=== PATIENT | female | born 1975 | race Caucasian/White ===

== ENCOUNTER 2017-08-14 11:47 | Emergency (ER) | payer MEDICAID ==
--- NOTE | 2017-08-14 12:56 | EDM.PDOC ---
ED HPI GENERAL MEDICAL PROBLEM - General Chief Complaint: Lower Extremity Injury/Pain Stated Complaint: Left calf pain Time Seen by Provider: 08/14/17 12:22 Source of Information: Reports: Patient History Limitations: Reports: No Limitations - History of Present Illness INITIAL COMMENTS - FREE TEXT/NARRATIVE: Patient comes in due to continued lower left leg discomfort two days after injuring the extremity while at work. Was pushing a cart at [employer] and suddenly turned. While turning she felt a pop around the left ankle and sudden burning pain going up calf. This has not improved over the last two days. She denies other injury. Has difficult time ambulating due to the discomfort. Mild numbness around superior/posterior back of foot near base of Achilles tendon. No other complaints. 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) - Related Data Allergies Allergy/AdvReac Type Severity Reaction Status Date / Time hydromorphone [From Dilaudid] Allergy Vomiting Verified 08/14/17 11:48 Home Meds: Home Meds Ibuprofen [Motrin] 800 mg PO QID PRN 08/14/17 [History] Starts With 'R" And Is For Choresterol 08/14/17 [History] Venlafaxine [Effexor] 10 mg PO DAILY 08/14/17 [History] Past Medical History Cardiovascular History: Reports: High Cholesterol Neurological History: Reports: Other (See Below) (mood disorder) Social & Family History - Tobacco Use Smoking Status *Q: Current Every Day Smoker Years of Tobacco use: 12 Packs/Tins Daily: 0.7 Second Hand Smoke Exposure: Yes - Caffeine Use Caffeine Use: Reports: Coffee, Soda Other Caffeine Use: 2 cups a day, one pop in evening - Recreational Drug Use Recreational Drug Use: No Review of Systems - Review of Systems Review Of Systems: ROS reveals no pertinent complaints other than HPI. ED EXAM, GENERAL - Physical Exam Exam: See Below Exam Limited By: No Limitations General Appearance: Alert, WD/WN, No Apparent Distress Eye Exam: Bilateral Eye: EOMI, PERRL Head: Atraumatic, Normocephalic Respiratory/Chest: No Respiratory Distress Peripheral Pulses: 2+: Dorsalis Pedis (L) Extremities: Normal Capillary Refill, Other (tender with palpation over calf area. Negative Pacheco test. No edema noted when comparing left to right. Foot NVI. ) Neurological: Alert, Oriented Psychiatric: Normal Affect, Normal Mood Skin Exam: Warm, Dry, Intact, Normal Color Course - Vital Signs Last Recorded V/S: Last Vital Signs Temp 36.9 C 08/14/17 12:05 Pulse 90 08/14/17 12:05 Resp 16 08/14/17 12:05 BP 114/72 08/14/17 12:05 Pulse Ox 99 08/14/17 12:05 - Orders/Labs/Meds Orders: Active Orders 24 hr Category Date Time Status Ankle Min 3V Lt [CR] Stat Exams 08/14/17 11:57 Taken - Radiology Interpretation Free Text/Narrative:: Xray of ankle unremarkable for fracture/acute change - Re-Assessments/Exams Free Text/Narrative Re-Assessment/Exam: 08/14/17 13:10 Suspect partial achilles tendon tear based on history and exam. Cam boot given to patient. She declined crutches. Work slip given. She is to follow up tomorrow at Ortho walk in clinic in [place], either [place] or [facility], be evaluated, and formulate a care plan. One bottle of Toradol 10mg tabs from take home supply in ER given to patient to help with discomfort. Departure - Departure Time of Disposition: 12:41 Disposition: Home, Self-Care 01 Condition: Good Clinical Impression: Partial Achilles tendon tear Qualifiers: Encounter type: initial encounter Laterality: left Qualified Code(s): S86.012A - Strain of left Achilles tendon, initial encounter - Discharge Information Instructions: Partial (Incomplete) Achilles Tendon Rupture Referrals: Linda Tee PA-C [Primary Care Provider] - Forms: ED Department Discharge Additional Instructions: Avoid weight bearing until you see Ortho tomorrow. Follow up with walk-in Ortho either at [place] or [facility] Wear boot for support Take Tramadol one tablet every 6 hours as needed for pain. - My Orders Last 24 Hours: My Active Orders 08/14/17 11:57 Ankle Min 3V Lt [CR] Stat - Assessment/Plan Last 24 Hours: My Active Orders 08/14/17 11:57 Ankle Min 3V Lt [CR] Stat
== END 2017-08-14 13:15 | disposition home or self-care (01) ==
LOC: LL.ED 11:47
DX: S86.012A Strain of left Achilles tendon, initial encounter (principal); E78.00 Pure hypercholesterolemia, unspecified; F17.210 Nicotine dependence, cigarettes, uncomplicated; X50.0XXA Overexertion from strenuous movement or load, initial encounter; Y99.0 Civilian activity done for income or pay; Z88.5 Allergy status to narcotic agent
CPT/HCPCS: 73610-LT; 99283

== ENCOUNTER 2017-09-25 21:45 | Observation (INO) | payer MEDICAID ==
[2017-09-25] MEDS ORDERED: fentaNYL 100 MCG/2 ML SDV IVPUSH ONE ×2 (22:40→23:53)
[2017-09-25] MEDS ORDERED: diphenhydrAMINE 50 MG/ML SDV IVPUSH ONE (22:40)
[2017-09-25 22:41] LABS: CHLORIDE,CL 103 mmol/L (98-107); SODIUM,NA 140 mmol/L (136-145)
[2017-09-25] MEDS ORDERED: Promethazine 25 MG/ML SDV IM ONE (22:41)
[2017-09-25] MEDS ORDERED: Sodium Chloride 0.9% 1,000 ML IV ONE (22:41)
--- NOTE | 2017-09-25 22:47 | EDM.PDOC ---
ED HPI GENERAL MEDICAL PROBLEM - General Chief Complaint: Abdominal Pain Stated Complaint: right lower abd pain Time Seen by Provider: 09/25/17 22:15 Source of Information: Reports: Patient History Limitations: Reports: No Limitations - History of Present Illness INITIAL COMMENTS - FREE TEXT/NARRATIVE: Patient comes complaining of 2 day history of increasing RLQ pain. Dull/achy/ burning. Radiates through to her back. Mild nausea but still able to eat/drink today. No bowel changes. No urinary changes. Eat/drink/position change/urinating/BM have no impact on pain. Riding over bumps in the car made pain worse. Has had GB, uterus, ovaries removed. Still has appendix. Has had kidney stones in past but this does not feel like that to her. Smoker. Family history non-contributory. 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, Other Medication(s) Right Upper Abdomen Pain Score (Numeric/FACES): 5 - Related Data Allergies Allergy/AdvReac Type Severity Reaction Status Date / Time adhesive Allergy Hives Verified 09/25/17 21:47 hydromorphone [From Dilaudid] Allergy Vomiting Verified 09/25/17 21:46 latex Allergy Hives Verified 09/25/17 21:47 Home Meds: Home Meds Acetaminophen [Extra Strength Non-Aspirin] 2 tab PO Q6H 09/25/17 [History] Hydrocodone/Acetaminophen [Hydrocodon-Acetaminophen 5-325] 1 tab PO ASDIRECTED 09/25/17 [History] Ibuprofen 800 mg PO Q6H 09/25/17 [History] Rosuvastatin [Crestor] 10 mg PO BEDTIME 09/25/17 [History] Venlafaxine [Effexor] 25 mg PO BEDTIME 09/25/17 [History] Past Medical History HEENT History: Reports: Impaired Vision Cardiovascular History: Reports: Arrhythmia, High Cholesterol, Hypertension Genitourinary History: Reports: Pyelonephritis, Renal Calculus 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: Polycystic Ovaries, Spontaneous Neurological History: Reports: Migraines Endocrine/Metabolic History: Reports: Hypothyroidism Hematologic History: Reports: Anemia, Iron Deficiency Oncologic (Cancer) History: Reports: Breast - Past Surgical History HEENT Surgical History: Reports: Oral Surgery Cardiovascular Surgical History: Reports: Cardiac Ablation GI Surgical History: Reports: Cholecystectomy, Hernia, Abdominal Female Surgical History: Reports: Breast Biopsy, Breast Implant, Breast Reconstruction, Lithotripsy/ESWL, Salpingo-Oophorectomy, Tubal Ligation Musculoskeletal Surgical History: Reports: Arthroscopic Knee Oncologic Surgical History: Reports: Biopsy of Breast, Lumpectomy, Mastectomy Social & Family History - Tobacco Use Smoking Status *Q: Current Every Day Smoker Years of Tobacco use: 12 Packs/Tins Daily: 1 - Caffeine Use Caffeine Use: Reports: Coffee, Soda - Alcohol Use Alcohol Use History: No Alcohol Use in Last Twelve Months: No Alcohol Use Comment: Alcohol gives patient hives - Recreational Drug Use Recreational Drug Use: No ED ROS GENERAL - Review of Systems Review Of Systems: See Below Constitutional: Reports: No Symptoms. Denies: Fever, Chills, Diaphoresis, Decreased Appetite, Weight Loss, Weight Gain HEENT: Reports: No Symptoms, Glasses Respiratory: Reports: No Symptoms. Denies: Shortness of Breath, Cough Cardiovascular: Reports: No Symptoms. Denies: Chest Pain GI/Abdominal: Reports: Abdominal Pain, Nausea. Denies: Black Stool, Bloody Stool, Constipation, Diarrhea, Decreased Appetite, Difficulty Swallowing, Distension, Hematemesis, Hematochezia, Vomiting : Reports: No Symptoms Musculoskeletal: Reports: No Symptoms Skin: Reports: No Symptoms Neurological: Reports: No Symptoms Psychiatric: Reports: No Symptoms Hematologic/Lymphatic: Reports: No Symptoms ED EXAM, GI/ABD - Physical Exam Exam: See Below Exam Limited By: No Limitations General Appearance: Alert, WD/WN, Mild Distress, Other (wants to lay on side, position of comfort) Eyes: Bilateral: Normal Appearance, EOMI Ears: Normal External Exam Nose: No: Nasal Deformity, Nasal Swelling, Nasal Drainage Throat/Mouth: Normal Lips, Normal Voice, No Airway Compromise Head: Atraumatic, Normocephalic Neck: Normal Inspection, Supple, Non-Tender, Full Range of Motion Respiratory/Chest: No Respiratory Distress, Lungs Clear, Normal Breath Sounds, No Accessory Muscle Use, Chest Non-Tender Cardiovascular: Normal Peripheral Pulses, Regular Rate, Rhythm, No Edema, No Murmur GI/Abdominal Exam: No Distention, Guarding (mild), Rebound, Tender, Abnormal Bowel Sounds (decreased bowel sounds throughout), Other (Pain concentrated in RLQ). No: Rigid (Female) Exam: Deferred Rectal (Female) Exam: Deferred Back Exam: No: CVA Tenderness (L), CVA Tenderness (R) Extremities: Normal Inspection, Normal Range of Motion, Non-Tender, No Pedal Edema, Normal Capillary Refill Neurological: Alert, Oriented, Normal Cognition, No Motor/Sensory Deficits Psychiatric: Normal Affect, Normal Mood Skin Exam: Warm, Dry, Intact, Normal Color Course - Vital Signs Last Recorded V/S: Last Vital Signs Temp 36.3 C 09/25/17 21:55 Pulse 88 09/25/17 21:55 Resp 18 09/25/17 21:55 BP 125/86 09/25/17 21:55 Pulse Ox 100 09/25/17 21:55 - Orders/Labs/Meds Orders: Active Orders 24 hr Category Date Time Status Abdomen 2V AP Flat Upright [CR] Stat Exams 09/25/17 22:01 Taken Abdomen Pelvis w Cont [CT] Stat Exams 09/25/17 22:39 Ordered UA W/MICROSCOPIC [URIN] Stat Lab 09/25/17 22:01 Ordered Sodium Chloride 0.9% [Normal Saline] 1,000 ml Med 09/25/17 22:41 Ordered IV .BOLUS Sodium Chloride 0.9% [Saline Flush] Med 09/25/17 22:39 Ordered 10 ml FLUSH ASDIRECTED PRN Saline Lock Insert [OM.PC] Routine Oth 09/25/17 22:39 Ordered Medication Orders Sodium Chloride (Normal Saline) 1,000 mls @ 250 mls/hr IV .BOLUS ONE Stop: 09/26/17 02:40 Last Admin: 09/25/17 23:02 Dose: 250 mls/hr Sodium Chloride (Saline Flush) 10 ml FLUSH ASDIRECTED PRN PRN Reason: Keep Vein Open Labs: Laboratory Tests 09/25/17 09/25/17 09/25/17 Range/Units 22:01 22:10 22:15 WBC 6.4 (4.0-10.2) K/uL RBC 4.48 (3.77-5.09) M/uL Hgb 13.9 (11.7-15.5) g/dL Hct 40.7 (34.0-46.0) % MCV 90.8 (84.0-98.0) fL MCH 31.0 (28.2-33.3) pg MCHC 34.2 (31.7-36.0) g/dL RDW 13.0 (11.2-14.1) % Plt Count 214 (150-350) K/uL Neut % (Auto) 48.1 (45.0-80.0) % Lymph % (Auto) 38.9 (10.0-50.0) % [place] % (Auto) 10.7 (2.0-14.0) % Eos % (Auto) 2.0 (0.0-5.0) % Baso % (Auto) 0.3 (0.0-2.0) % Neut # (Auto) 3.06 (1.40-7.00) K/uL Lymph # (Auto) 2.48 (0.50-3.50) K/uL [place] # (Auto) 0.68 (0.00-1.00) K/uL Eos # (Auto) 0.13 (0.00-0.50) K/uL Baso # (Auto) 0.02 (0.00-0.20) K/uL Sodium 140 (136-145) mmol/L Potassium 3.9 (3.5-5.1) mmol/L Chloride 103 (98-107) mmol/L Carbon Dioxide 29.9 (21.0-32.0) mmol/L BUN 11 (7-18) mg/dL Creatinine 0.78 (0.51-1.17) mg/dL Est Cr Clr Drug Dosing 81.96 mL/min Estimated GFR (MDRD) > 60 mL/min Glucose 94 (74-106) mg/dL Calcium 9.2 (8.5-10.1) mg/dL Total Bilirubin 0.3 (0.2-1.0) mg/dL AST 21 (15-37) U/L ALT 22 (12-78) U/L Alkaline Phosphatase 123 H (46-116) IU/L Total Protein 7.9 (6.4-8.2) g/dL Albumin 4.1 (3.4-5.0) g/dL Specimen Type Urincc Urine Color Light yellow Urine Appearance Clear Urine pH 7.0 (5.0-9.0) Ur Specific [place] 1.010 (1.005-1.030) Urine Protein Negative (NEGATIVE) mg/dL Urine Glucose (UA) Negative (NEGATIVE) mg/dL Urine Ketones Negative (NEGATIVE) mg/dL Urine Occult Blood Negative (NEGATIVE) Urine Nitrite Negative (NEGATIVE) Urine Bilirubin Negative (NEGATIVE) Urine Urobilinogen 0.2 (0.2-1.0) E.U./dL Ur Leukocyte Esterase Negative (NEGATIVE) Urine RBC Not seen /HPF Urine WBC 0-5 /HPF Ur Epithelial Cells Rare /LPF Urine Bacteria Not seen (NONE TO FEW) /HPF Meds: Medications Generic Name Dose Route Start Last Admin Trade Name Freq PRN Reason Stop Dose Admin Sodium Chloride 1,000 mls @ 250 mls/hr 09/25/17 22:41 09/25/17 23:02 Normal Saline IV 09/26/17 02:40 250 mls/hr .BOLUS ONE Administration Sodium Chloride 10 ml 09/25/17 22:39 Saline Flush FLUSH ASDIRECTED PRN Keep Vein Open Discontinued Medications Generic Name Dose Route Start Last Admin Trade Name Freq PRN Reason Stop Dose Admin Diphenhydramine HCl 50 mg 09/25/17 22:40 09/25/17 23:04 Benadryl IVPUSH 09/25/17 22:41 50 mg ONETIME ONE Administration Fentanyl 100 mcg 09/25/17 22:40 09/25/17 23:04 Sublimaze IVPUSH 09/25/17 22:41 100 mcg ONETIME ONE Administration Fentanyl 250 mcg 09/25/17 23:41 09/26/17 00:40 Sublimaze IVPUSH 09/25/17 23:42 Not Given ONETIME ONE Fentanyl 100 mcg 09/25/17 23:53 09/25/17 23:59 Sublimaze IVPUSH 09/25/17 23:54 100 mcg ONETIME ONE Administration Iopamidol 100 ml 09/25/17 23:03 09/25/17 23:32 Isovue-300 (61%) IVPUSH 09/25/17 23:04 100 ml ONETIME ONE Administration Ondansetron HCl 4 mg 09/25/17 23:41 09/25/17 23:46 Zofran IVPUSH 09/25/17 23:42 4 mg ONETIME ONE Administration Promethazine HCl 25 mg 09/25/17 22:41 09/25/17 23:10 Phenergan IM 09/25/17 22:42 25 mg ONETIME ONE Administration - Radiology Interpretation Free Text/Narrative:: Negative for appendicitis/stone/muscle tears/fluid or other changes. CT Results Date: 09/26/17 CT Results Time: 12:17 - Re-Assessments/Exams Free Text/Narrative Re-Assessment/Exam: 09/26/17 00:44 Given Benadryl prior to pain medication. Did have some nausea/retching after the Benadryl. Uncertain if due to Benadryl but patient recalls having nausea when taking Benadryl in past. Patient's pain improved after receiving Fentanyl. IV fluids given. CBC/Chem/UA completely normal as was CT. 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 It was recommended that she stay here and be admitted to observation with serial abdominal exams and antibiotics. Several recommended therapy regimens offered/suggested for prophylactic coverage. Patient can be referred to their facility if the need arises. Patient and agreeable with plan. She will be admitted to observation and will have Rocephin as well as Flagyl initiated. Departure - Departure Time of Disposition: 00:58 Disposition: Refer to Observation Condition: Good Clinical Impression: Abdominal pain Qualifiers: Abdominal location: right lower quadrant Qualified Code(s): R10.31 - Right lower quadrant pain - Discharge Information Referrals: Linda Tee PA-C [Primary Care Provider] - Forms: ED Department Discharge - Problem List & Annotations (1) Abdominal pain SNOMED Code(s): 44511310 Code(s): R10.9 - UNSPECIFIED ABDOMINAL PAIN Status: Acute Priority: High Onset Date: 09/24/17 Annotation/Comment:: Uncertain cause at this time. Guarding and rebound present. Labs and CT unremarkable. Will admit to observation. Patient will be NPO except for water/ice chips. Serial abdominal exams. Repeat labs. Observe for change. Will prophylactically cover with antibiotics as suggested by Joshua. Rocephin and Flagyl ordered. May need to repeat CT to look for change if pain does not improve within the next 48 hours. Qualifiers: Abdominal location: right lower quadrant - Problem List Review Problem List Initiated/Reviewed/Updated: Yes - My Orders Last 24 Hours: My Active Orders 09/25/17 22:01 Abdomen 2V AP Flat Upright [CR] Stat UA W/MICROSCOPIC [URIN] Stat 09/25/17 22:39 Abdomen Pelvis w Cont [CT] Stat Sodium Chloride 0.9% [Saline Flush] 10 ml FLUSH ASDIRECTED PRN Saline Lock Insert [OM.PC] Routine 09/25/17 22:41 Sodium Chloride 0.9% [Normal Saline] 1,000 ml IV .BOLUS - Assessment/Plan Admission H&P: Please use this note as an admission H&P Last 24 Hours: My Active Orders 09/25/17 22:01 Abdomen 2V AP Flat Upright [CR] Stat UA W/MICROSCOPIC [URIN] Stat 09/25/17 22:39 Abdomen Pelvis w Cont [CT] Stat Sodium Chloride 0.9% [Saline Flush] 10 ml FLUSH ASDIRECTED PRN Saline Lock Insert [OM.PC] Routine 09/25/17 22:41 Sodium Chloride 0.9% [Normal Saline] 1,000 ml IV .BOLUS Assessment:: as above Plan: as above
[2017-09-25] MEDS ORDERED: Iopamidol 612 MG/ML 100 ML Bottle IVPUSH ONE (23:03)
[2017-09-25] MEDS ORDERED: fentaNYL 250 MCG/5 ML SDV IVPUSH ONE (23:41)
[2017-09-25] MEDS ORDERED: Ondansetron 4 MG/2 ML SDV IVPUSH ONE (23:41)
[2017-09-26] MEDS ORDERED: Promethazine 25 MG Tab PO PRN (01:22)
[2017-09-26] MEDS: Ketorolac 30 MG/ML SDV IVPUSH PRN ×3 (02:04→20:01)
[2017-09-26] MEDS: cefTRIAXone 1 GM in Sodium Chloride 0.9% 100 ML IV SCH (02:04)
[2017-09-26] MEDS: Nicotine 21 MG/24 Hr Patch TRDERM SCH ×2 (02:05→08:12)
[2017-09-26] MEDS: metroNIDAZOLE/Normal Saline 500 MG in Premix Bag 1 BAG IV SCH ×3 (02:31→16:57)
[2017-09-26] MEDS: Sodium Chloride 0.9% 1,000 ML IV SCH ×2 (07:21→16:57)
[2017-09-26] MEDS: fentaNYL 100 MCG/2 ML SDV IVPUSH PRN ×2 (07:22→14:19)
[2017-09-26 11:21] LABS: CHLORIDE,CL 110 mmol/L (98-107); SODIUM,NA 142 mmol/L (136-145)
[2017-09-26] MEDS: Ondansetron 4 MG/2 ML SDV IVPUSH PRN (14:20)
[2017-09-26] MEDS: Sodium Chloride 0.9% 10 ML Syringe FLUSH PRN (14:22)
--- NOTE | 2017-09-26 17:25 | PCM.PN ---
- General Info Date of Service: 09/26/17 Pain Score: 2 - Review of Systems General: Reports: Other (Abdominal pain) HEENT: Reports: No Symptoms Pulmonary: Reports: No Symptoms Cardiovascular: Reports: No Symptoms Gastrointestinal: Reports: Abdominal Pain Genitourinary: Reports: No Symptoms Musculoskeletal: Reports: No Symptoms Skin: Reports: No Symptoms Neurological: Reports: No Symptoms Psychiatric: Reports: No Symptoms - Patient Data Vitals - Most Recent: Last Vital Signs Temp 97.6 F 09/26/17 16:00 Pulse 69 09/26/17 16:00 Resp 16 09/26/17 16:00 BP 110/72 09/26/17 16:00 Pulse Ox 99 09/26/17 16:00 Weight - Most Recent: 140 lb 9.6 oz I&O - Last 24 Hours: Intake & Output 09/26/17 09/26/17 09/26/17 06:59 14:59 22:59 Intake Total 1182 500 Output Total 550 150 300 Balance 632 -150 200 Lab Results Last 24 Hours: Laboratory Results - last 24 hr 09/25/17 09/25/17 09/25/17 Range/Units 22:01 22:10 22:15 WBC 6.4 (4.0-10.2) K/uL RBC 4.48 (3.77-5.09) M/uL Hgb 13.9 (11.7-15.5) g/dL Hct 40.7 (34.0-46.0) % MCV 90.8 (84.0-98.0) fL MCH 31.0 (28.2-33.3) pg MCHC 34.2 (31.7-36.0) g/dL RDW 13.0 (11.2-14.1) % Plt Count 214 (150-350) K/uL Neut % (Auto) 48.1 (45.0-80.0) % Lymph % (Auto) 38.9 (10.0-50.0) % Dane % (Auto) 10.7 (2.0-14.0) % Eos % (Auto) 2.0 (0.0-5.0) % Baso % (Auto) 0.3 (0.0-2.0) % Neut # (Auto) 3.06 (1.40-7.00) K/uL Lymph # (Auto) 2.48 (0.50-3.50) K/uL Dane # (Auto) 0.68 (0.00-1.00) K/uL Eos # (Auto) 0.13 (0.00-0.50) K/uL Baso # (Auto) 0.02 (0.00-0.20) K/uL Sodium 140 (136-145) mmol/L Potassium 3.9 (3.5-5.1) mmol/L Chloride 103 (98-107) mmol/L Carbon Dioxide 29.9 (21.0-32.0) mmol/L BUN 11 (7-18) mg/dL Creatinine 0.78 (0.51-1.17) mg/dL Est Cr Clr Drug Dosing 81.96 mL/min Estimated GFR (MDRD) > 60 mL/min Glucose 94 (74-106) mg/dL Calcium 9.2 (8.5-10.1) mg/dL Total Bilirubin 0.3 (0.2-1.0) mg/dL AST 21 (15-37) U/L ALT 22 (12-78) U/L Alkaline Phosphatase 123 H (46-116) IU/L Total Protein 7.9 (6.4-8.2) g/dL Albumin 4.1 (3.4-5.0) g/dL Amylase (25-115) U/L Specimen Type Urincc Urine Color Light yellow Urine Appearance Clear Urine pH 7.0 (5.0-9.0) Ur Specific [place] 1.010 (1.005-1.030) Urine Protein Negative (NEGATIVE) mg/dL Urine Glucose (UA) Negative (NEGATIVE) mg/dL Urine Ketones Negative (NEGATIVE) mg/dL Urine Occult Blood Negative (NEGATIVE) Urine Nitrite Negative (NEGATIVE) Urine Bilirubin Negative (NEGATIVE) Urine Urobilinogen 0.2 (0.2-1.0) E.U./dL Ur Leukocyte Esterase Negative (NEGATIVE) Urine RBC Not seen /HPF Urine WBC 0-5 /HPF Ur Epithelial Cells Rare /LPF Urine Bacteria Not seen (NONE TO FEW) /HPF 09/26/17 09/26/17 Range/Units 09:00 09:00 WBC 4.4 (4.0-10.2) K/uL RBC 4.04 (3.77-5.09) M/uL Hgb 12.4 D (11.7-15.5) g/dL Hct 37.1 (34.0-46.0) % MCV 91.8 (84.0-98.0) fL MCH 30.7 (28.2-33.3) pg MCHC 33.4 (31.7-36.0) g/dL RDW 13.1 (11.2-14.1) % Plt Count 167 (150-350) K/uL Neut % (Auto) 45.4 (45.0-80.0) % Lymph % (Auto) 39.6 (10.0-50.0) % Dane % (Auto) 11.8 (2.0-14.0) % Eos % (Auto) 2.5 (0.0-5.0) % Baso % (Auto) 0.7 (0.0-2.0) % Neut # (Auto) 2.01 (1.40-7.00) K/uL Lymph # (Auto) 1.75 (0.50-3.50) K/uL Dane # (Auto) 0.52 (0.00-1.00) K/uL Eos # (Auto) 0.11 (0.00-0.50) K/uL Baso # (Auto) 0.03 (0.00-0.20) K/uL Sodium 142 (136-145) mmol/L Potassium 4.2 (3.5-5.1) mmol/L Chloride 110 H (98-107) mmol/L Carbon Dioxide 25.9 (21.0-32.0) mmol/L BUN 9 (7-18) mg/dL Creatinine 0.80 (0.51-1.17) mg/dL Est Cr Clr Drug Dosing 79.91 mL/min Estimated GFR (MDRD) > 60 mL/min Glucose 91 (74-106) mg/dL Calcium 8.4 L (8.5-10.1) mg/dL Total Bilirubin 0.3 (0.2-1.0) mg/dL AST 19 (15-37) U/L ALT 19 (12-78) U/L Alkaline Phosphatase 100 (46-116) IU/L Total Protein 6.2 L (6.4-8.2) g/dL Albumin 3.2 L (3.4-5.0) g/dL Amylase 38 (25-115) U/L Specimen Type Urine Color Urine Appearance Urine pH (5.0-9.0) Ur Specific [place] (1.005-1.030) Urine Protein (NEGATIVE) mg/dL Urine Glucose (UA) (NEGATIVE) mg/dL Urine Ketones (NEGATIVE) mg/dL Urine Occult Blood (NEGATIVE) Urine Nitrite (NEGATIVE) Urine Bilirubin (NEGATIVE) Urine Urobilinogen (0.2-1.0) E.U./dL Ur Leukocyte Esterase (NEGATIVE) Urine RBC /HPF Urine WBC /HPF Ur Epithelial Cells /LPF Urine Bacteria (NONE TO FEW) /HPF Med Orders - Current: Current Medications Fentanyl (Sublimaze) 100 mcg IVPUSH Q4H PRN PRN Reason: Pain (severe 7-10) Last Admin: 09/26/17 14:19 Dose: 100 mcg Sodium Chloride (Normal Saline) 1,000 mls @ 125 mls/hr IV ASDIRECTED [facility] Last Admin: 09/26/17 16:57 Dose: 125 mls/hr Ceftriaxone Sodium 1 gm/ (Sodium Chloride) 100 mls @ 200 mls/hr IV Q24H [facility] Last Admin: 09/26/17 02:04 Dose: 200 mls/hr Metronidazole 500 mg/ Premix 100 mls @ 100 mls/hr IV Q8H [facility] Last Admin: 09/26/17 16:57 Dose: 100 mls/hr Ketorolac Tromethamine (Toradol) 30 mg IVPUSH Q6H PRN PRN Reason: Pain (moderate 4-6) Stop: 10/01/17 01:22 Last Admin: 09/26/17 09:29 Dose: 30 mg Nicotine (Habitrol) 21 mg TRDERM DAILY [facility] Last Admin: 09/26/17 08:12 Dose: Not Given Ondansetron HCl (Zofran) 4 mg IVPUSH Q4H PRN PRN Reason: Nausea/Vomiting Last Admin: 09/26/17 14:20 Dose: 4 mg Promethazine HCl (Phenergan) 25 mg PO Q6H PRN PRN Reason: Nausea/Vomiting Rosuvastatin Calcium (Crestor) 10 mg PO BEDTIME [facility] Sodium Chloride (Saline Flush) 10 ml FLUSH ASDIRECTED PRN PRN Reason: Keep Vein Open Last Admin: 09/26/17 14:22 Dose: 10 ml Venlafaxine HCl (Effexor) 25 mg PO BEDTIME [facility]YAN Discontinued Medications Diphenhydramine HCl (Benadryl) 50 mg IVPUSH ONETIME ONE Stop: 09/25/17 22:41 Last Admin: 09/25/17 23:04 Dose: 50 mg Fentanyl (Sublimaze) 100 mcg IVPUSH ONETIME ONE Stop: 09/25/17 22:41 Last Admin: 09/25/17 23:04 Dose: 100 mcg Fentanyl (Sublimaze) 250 mcg IVPUSH ONETIME ONE Stop: 09/25/17 23:42 Last Admin: 09/26/17 00:40 Dose: Not Given Fentanyl (Sublimaze) 100 mcg IVPUSH ONETIME ONE Stop: 09/25/17 23:54 Last Admin: 09/25/17 23:59 Dose: 100 mcg Sodium Chloride (Normal Saline) 1,000 mls @ 250 mls/hr IV .BOLUS ONE Stop: 09/26/17 02:40 Last Admin: 09/25/17 23:02 Dose: 250 mls/hr Iopamidol (Isovue-300 (61%)) 100 ml IVPUSH ONETIME ONE Stop: 09/25/17 23:04 Last Admin: 09/25/17 23:32 Dose: 100 ml Ondansetron HCl (Zofran) 4 mg IVPUSH ONETIME ONE Stop: 09/25/17 23:42 Last Admin: 09/25/17 23:46 Dose: 4 mg Promethazine HCl (Phenergan) 25 mg IM ONETIME ONE Stop: 09/25/17 22:42 Last Admin: 09/25/17 23:10 Dose: 25 mg - Exam General: Alert, Oriented HEENT: Pupils Equal, Pupils Reactive, EOMI, Mucous Membr. Moist/[place] Neck: Supple Lungs: Clear to Auscultation, Normal Respiratory Effort Cardiovascular: Regular Rate, Regular Rhythm GI/Abdominal Exam: Normal Bowel Sounds, Soft, Rebound, Tender (Right lower quadrant) Extremities: Normal Inspection, Normal Range of Motion, Non-Tender, No Pedal Edema, Normal Capillary Refill Skin: Warm, Dry, Intact Neurological: No New Focal Deficit - Problem List & Annotations (1) Abdominal pain SNOMED Code(s): 34705059 Code(s): R10.9 - UNSPECIFIED ABDOMINAL PAIN Status: Acute Priority: High Current Visit: No Onset Date: 09/24/17 Qualifiers: Abdominal location: right lower quadrant Qualified Code(s): R10.31 - Right lower quadrant pain Annotation/Comment:: At this time patient examined revealed right lower quadrant pain still about 6 out of 10 when palpating the abdomen at rest is a 2 out of 10 and this time I'll continue the antibiotics empirically and pain control will order a repeat CT of the abdomen with both oral and IV contrast - Problem List Review Problem List Initiated/Reviewed/Updated: Yes
[2017-09-26] MEDS ORDERED: Rosuvastatin 10 MG Tab PO SCH (20:00)
[2017-09-27] MEDS: metroNIDAZOLE/Normal Saline 500 MG in Premix Bag 1 BAG IV SCH ×2 (00:35→09:00)
[2017-09-27] MEDS: cefTRIAXone 1 GM in Sodium Chloride 0.9% 100 ML IV SCH (01:37)
[2017-09-27] MEDS: Sodium Chloride 0.9% 1,000 ML IV SCH ×2 (03:40→13:39)
[2017-09-27] MEDS: Ketorolac 30 MG/ML SDV IVPUSH PRN (05:07)
[2017-09-27 07:11] LABS: CHLORIDE,CL 112 mmol/L (98-107); SODIUM,NA 143 mmol/L (136-145)
[2017-09-27] MEDS ORDERED: Iopamidol 612 MG/ML 100 ML Bottle IVPUSH ONE (07:13)
[2017-09-27] MEDS: Nicotine 21 MG/24 Hr Patch TRDERM SCH (07:39)
[2017-09-27] MEDS ORDERED: Remove Patch NICOTINE PATCH TRDERM SCH (08:15)
[2017-09-27] MEDS: Sodium Chloride 0.9% 10 ML Syringe FLUSH PRN (09:01)
[2017-09-27] MEDS: Ondansetron 4 MG/2 ML SDV IVPUSH PRN (09:11)
--- NOTE | 2017-09-27 13:59 | PCM.DCSUM1 ---
Discharge Summary - Hospital Course Free Text/Narrative:: Patient seen today for follow-up abdominal pain CT of the abdomen revealed no abnormalities at this point appendix appeared normal and there was no ovarian cyst noted or any findings to explain the pain at this time patient feels better pain seems to be under control and tolerating diet we will send her home with instructions to follow-up with primary if worsen - Discharge Data Discharge Date: 09/27/17 Discharge Disposition: Home, Self-Care 01 Condition: Good - Discharge Diagnosis/Problem(s) (1) Abdominal pain SNOMED Code(s): 19636444 ICD Code: R10.9 - UNSPECIFIED ABDOMINAL PAIN Status: Acute Priority: High Current Visit: No Onset Date: 09/24/17 Problem Details: Repeated CT of abdomen negative at this time patient is doing better we'll sent home Qualifiers: Abdominal location: right lower quadrant Qualified Code(s): R10.31 - Right lower quadrant pain - Patient Instructions Diet: Usual Diet as Tolerated - Discharge Plan Home Medications: Home Meds Ibuprofen [Motrin] 800 mg PO QID PRN 08/14/17 [History] Starts With 'R" And Is For Choresterol 08/14/17 [History] Venlafaxine [Effexor] 10 mg PO DAILY 08/14/17 [History] Acetaminophen [Extra Strength Non-Aspirin] 2 tab PO Q6H 09/25/17 [History] Hydrocodone/Acetaminophen [Hydrocodon-Acetaminophen 5-325] 1 tab PO ASDIRECTED 09/25/17 [History] Ibuprofen 800 mg PO Q6H 09/25/17 [History] Rosuvastatin [Crestor] 10 mg PO BEDTIME 09/25/17 [History] Venlafaxine [Effexor] 25 mg PO BEDTIME 09/25/17 [History] Patient Handouts: Ondansetron injection, Ceftriaxone injection, Promethazine injection, Abdominal Pain, Adult, [id number], Fentanyl injection, Metronidazole injection Forms: ED Department Discharge Referrals: Linda Tee PA-C [Primary Care Provider] - - Discharge Summary/Plan Comment Discharge Summary/Plan Comment: Instructed to quit smoking also to cut down on caffeine as they may be a corporate of her pain otherwise no limitations - General Info Functional Status: Reports: Pain Controlled, Tolerating Diet - Review of Systems General: Reports: No Symptoms HEENT: Reports: No Symptoms Pulmonary: Reports: No Symptoms Cardiovascular: Reports: No Symptoms Gastrointestinal: Reports: Abdominal Pain (Much improved from yesterday) Genitourinary: Reports: No Symptoms Musculoskeletal: Reports: No Symptoms Skin: Reports: No Symptoms Neurological: Reports: No Symptoms Psychiatric: Reports: No Symptoms - Patient Data Vitals - Most Recent: Last Vital Signs Temp 98.2 F 09/27/17 12:00 Pulse 68 09/27/17 12:00 Resp 15 09/27/17 12:00 BP 117/77 09/27/17 12:00 Pulse Ox 100 09/27/17 12:00 Weight - Most Recent: 140 lb 9.597 oz I&O - Last 24 hours: Intake & Output 09/26/17 09/27/17 09/27/17 22:59 06:59 14:59 Intake Total 2240 2145 3700 Output Total 1050 900 800 Balance 1190 1245 2900 Lab Results - Last 24 hrs: Laboratory Results - last 24 hr 09/26/17 09/27/17 09/27/17 Range/Units 17:36 06:44 06:44 WBC 5.7 (4.0-10.2) K/uL RBC 3.87 (3.77-5.09) M/uL Hgb 11.9 (11.7-15.5) g/dL Hct 35.7 (34.0-46.0) % MCV 92.2 (84.0-98.0) fL MCH 30.7 (28.2-33.3) pg MCHC 33.3 (31.7-36.0) g/dL RDW 12.6 (11.2-14.1) % Plt Count 170 (150-350) K/uL MPV 12.70 H (7.00-11.50) fL Sodium 143 (136-145) mmol/L Potassium 4.3 (3.5-5.1) mmol/L Chloride 112 H (98-107) mmol/L Carbon Dioxide 24.8 (21.0-32.0) mmol/L BUN 6 L (7-18) mg/dL Creatinine 0.72 (0.51-1.17) mg/dL Est Cr Clr Drug Dosing 88.79 mL/min Estimated GFR (MDRD) > 60 mL/min Glucose 91 (74-106) mg/dL Calcium 8.1 L (8.5-10.1) mg/dL Amylase 40 (25-115) U/L Lipase 76 84 (73-393) U/L Med Orders - Current: Current Medications Fentanyl (Sublimaze) 100 mcg IVPUSH Q4H PRN PRN Reason: Pain (severe 7-10) Last Admin: 09/26/17 14:19 Dose: 100 mcg Sodium Chloride (Normal Saline) 1,000 mls @ 125 mls/hr IV ASDIRECTED [facility] Last Admin: 09/27/17 13:39 Dose: 125 mls/hr Ceftriaxone Sodium 1 gm/ (Sodium Chloride) 100 mls @ 200 mls/hr IV Q24H [facility] Last Admin: 09/27/17 01:37 Dose: 200 mls/hr Metronidazole 500 mg/ Premix 100 mls @ 100 mls/hr IV Q8H [facility] Last Admin: 09/27/17 09:00 Dose: 100 mls/hr Ketorolac Tromethamine (Toradol) 30 mg IVPUSH Q6H PRN PRN Reason: Pain (moderate 4-6) Stop: 10/01/17 01:22 Last Admin: 09/27/17 05:07 Dose: 30 mg Miscellaneous Information (Remove Patch) 1 ea TRDERM DAILY [facility] Last Admin: 09/27/17 07:39 Dose: 1 ea Nicotine (Habitrol) 21 mg TRDERM DAILY [facility] Last Admin: 09/27/17 07:39 Dose: 21 mg Ondansetron HCl (Zofran) 4 mg IVPUSH Q4H PRN PRN Reason: Nausea/Vomiting Last Admin: 09/27/17 09:11 Dose: 4 mg Promethazine HCl (Phenergan) 25 mg PO Q6H PRN PRN Reason: Nausea/Vomiting Rosuvastatin Calcium (Crestor) 10 mg PO BEDTIME [facility] Last Admin: 09/26/17 20:01 Dose: 10 mg Sodium Chloride (Saline Flush) 10 ml FLUSH ASDIRECTED PRN PRN Reason: Keep Vein Open Last Admin: 09/27/17 09:01 Dose: 10 ml Venlafaxine HCl (Effexor) 25 mg PO BEDTIME [facility] Last Admin: 09/26/17 20:01 Dose: 25 mg Discontinued Medications Diphenhydramine HCl (Benadryl) 50 mg IVPUSH ONETIME ONE Stop: 09/25/17 22:41 Last Admin: 09/25/17 23:04 Dose: 50 mg Fentanyl (Sublimaze) 100 mcg IVPUSH ONETIME ONE Stop: 09/25/17 22:41 Last Admin: 09/25/17 23:04 Dose: 100 mcg Fentanyl (Sublimaze) 250 mcg IVPUSH ONETIME ONE Stop: 09/25/17 23:42 Last Admin: 09/26/17 00:40 Dose: Not Given Fentanyl (Sublimaze) 100 mcg IVPUSH ONETIME ONE Stop: 09/25/17 23:54 Last Admin: 09/25/17 23:59 Dose: 100 mcg Sodium Chloride (Normal Saline) 1,000 mls @ 250 mls/hr IV .BOLUS ONE Stop: 09/26/17 02:40 Last Admin: 09/25/17 23:02 Dose: 250 mls/hr Iopamidol (Isovue-300 (61%)) 100 ml IVPUSH ONETIME ONE Stop: 09/25/17 23:04 Last Admin: 09/25/17 23:32 Dose: 100 ml Iopamidol (Isovue-300 (61%)) 100 ml IVPUSH ONETIME ONE Stop: 09/27/17 07:14 Last Admin: 09/27/17 08:27 Dose: 100 ml Ondansetron HCl (Zofran) 4 mg IVPUSH ONETIME ONE Stop: 09/25/17 23:42 Last Admin: 09/25/17 23:46 Dose: 4 mg Promethazine HCl (Phenergan) 25 mg IM ONETIME ONE Stop: 09/25/17 22:42 Last Admin: 09/25/17 23:10 Dose: 25 mg - Exam General: Reports: Alert, Oriented HEENT: Reports: Pupils Equal, Pupils Reactive, EOMI, Mucous Membr. Moist/[place] Neck: Reports: Supple Lungs: Reports: Clear to Auscultation, Normal Respiratory Effort Cardiovascular: Reports: Regular Rate, Regular Rhythm GI/Abdominal Exam: Normal Bowel Sounds, Soft, No Organomegaly, No Distention, No Abnormal Bruit, No Mass, Pelvis Stable, Tender Back Exam: Reports: Normal Inspection, Full Range of Motion Extremities: Normal Inspection, Normal Range of Motion, Non-Tender, No Pedal Edema, Normal Capillary Refill Skin: Reports: Warm, Dry, Intact Neurological: Reports: No New Focal Deficit Psy/Mental Status: Reports: Alert, Normal Affect, Normal Mood
== END 2017-09-27 14:45 | disposition home or self-care (01) ==
LOC: LL.ED 21:45 → LL.MS 09-26 00:55 → MERGE 09-26 00:55
PROVIDERS: ADMIT Emergency Medicine; ATTEND Family Medicine
DX: R10.31 Right lower quadrant pain (principal); F17.210 Nicotine dependence, cigarettes, uncomplicated; E78.00 Pure hypercholesterolemia, unspecified; I10 Essential (primary) hypertension; G43.909 Migraine, unspecified, not intractable, without status migrainosus; E03.9 Hypothyroidism, unspecified; Z90.49 Acquired absence of other specified parts of digestive tract; Z79.899 Other long term (current) drug therapy; Z91.048 Other nonmedicinal substance allergy status; Z91.040 Latex allergy status; Z88.5 Allergy status to narcotic agent; Z98.51 Tubal ligation status
CPT/HCPCS: 36415; 74019; 74177; 80048; 80053; 81001; 82150; 83690; 85025; 85027; 96361; 96365; 96366; 96367; 96372; 96375; 96376; 99285; A9270; G0378; J0696; J1200; J1885; J2405; J2550; J3010; J7030; J7050; Q9967; 96374

== ENCOUNTER 2018-01-03 20:34 | Emergency (ER) | payer MEDICAID ==
--- NOTE | 2018-01-03 20:58 | EDM.PDOC ---
ED HPI GENERAL MEDICAL PROBLEM - General Chief Complaint: Lower Extremity Injury/Pain Stated Complaint: left leg injury Time Seen by Provider: 01/03/18 20:36 Source of Information: Reports: Patient History Limitations: Reports: Other - History of Present Illness INITIAL COMMENTS - FREE TEXT/NARRATIVE: Patient is a 42-year-old female who was running at this time she stepped over a ditch and felt her left ankle give it felt like the previous accident that she had when she partially tore her Achilles tendon. Onset: Today, Sudden Duration: Minutes: (About 70 minutes ago) Location: Reports: Lower Extremity, Left Quality: Reports: Burning, Sharp Severity: Moderate Improves with: Reports: Immobilization Worsens with: Reports: Movement Context: Reports: Exercise Left Lower Leg Pain Score (Numeric/FACES): 10 - Related Data Allergies Allergy/AdvReac Type Severity Reaction Status Date / Time adhesive Allergy Hives Verified 09/25/17 21:47 cinnamon Allergy Hives Verified 01/03/18 20:38 hydromorphone [From Dilaudid] Allergy Vomiting Verified 08/14/17 11:48 latex Allergy Hives Verified 09/25/17 21:47 Home Meds: Home Meds . [No Known Home Meds] 01/03/18 [History] Past Medical History HEENT History: Reports: Impaired Vision Cardiovascular History: Reports: Arrhythmia, High Cholesterol, Hypertension Genitourinary History: Reports: Pyelonephritis, Renal Calculus REBEAMER History: Reports: Polycystic Ovaries, Spontaneous Neurological History: Reports: Migraines, Other (See Below) Endocrine/Metabolic History: Reports: Hypothyroidism Hematologic History: Reports: Anemia, Iron Deficiency Oncologic (Cancer) History: Reports: Breast - Past Surgical History HEENT Surgical History: Reports: Oral Surgery Cardiovascular Surgical History: Reports: Cardiac Ablation GI Surgical History: Reports: Cholecystectomy, Hernia, Abdominal Female Surgical History: Reports: Breast Biopsy, Breast Implant, Breast Reconstruction, Lithotripsy/ESWL, Salpingo-Oophorectomy, Tubal Ligation Musculoskeletal Surgical History: Reports: Arthroscopic Knee Oncologic Surgical History: Reports: Biopsy of Breast, Lumpectomy, Mastectomy Social & Family History - Family History Family Medical History: Noncontributory - Caffeine Use Caffeine Use: Reports: Coffee, Soda Other Caffeine Use: 2 cups a day, one pop in evening Review of Systems - Review of Systems Review Of Systems: See Below Constitutional: Reports: No Symptoms Eyes: Reports: No Symptoms Ears: Reports: No Symptoms Nose: Reports: No Symptoms Mouth/Throat: Reports: No Symptoms Respiratory: Reports: No Symptoms Cardiovascular: Reports: No Symptoms GI/Abdominal: Reports: No Symptoms Genitourinary: Reports: No Symptoms Musculoskeletal: Reports: Leg Pain Skin: Reports: No Symptoms Neurological: Reports: No Symptoms Psychiatric: Reports: No Symptoms ED EXAM, GENERAL - Physical Exam Exam Limited By: No Limitations General Appearance: Alert, WD/WN, No Apparent Distress Ears: Normal External Exam, Normal Canal, Hearing Grossly Normal, Normal TMs Ear Exam: Bilateral Ear: Auricle Normal, Canal Normal, TM normal Nose: Normal Inspection, Normal Mucosa, No Blood Throat/Mouth: Normal Inspection, Normal Lips, Normal Teeth, Normal Gums, Normal Oropharynx, Normal Voice, No Airway Compromise Head: Atraumatic, Normocephalic Neck: Normal Inspection, Supple, Non-Tender, Full Range of Motion Respiratory/Chest: No Respiratory Distress, Lungs Clear, Normal Breath Sounds, No Accessory Muscle Use, Chest Non-Tender Cardiovascular: Normal Peripheral Pulses, Regular Rate, Rhythm, No Edema, No Gallop, No JVD, No Murmur, No Rub GI/Abdominal: Normal Bowel Sounds, Soft, Non-Tender, No Organomegaly, No Distention, No Abnormal Bruit, No Mass (Female) Exam: Deferred Rectal (Female) Exam: Deferred Back Exam: Normal Inspection, Full Range of Motion, NT Extremities: Leg Pain, Limited Range of Motion (Weakness on flexion of foot crease pain Achilles tendon soft) Psychiatric: Normal Affect, Normal Mood Skin Exam: Warm, Dry, Intact, Normal Color, No Rash Departure - Departure Time of Disposition: 21:01 Disposition: Home, Self-Care 01 Condition: Fair Clinical Impression: Partial tear of left Achilles tendon, Rupture of Achilles tendon - Discharge Information *PRESCRIPTION DRUG MONITORING PROGRAM REVIEWED*: Not Applicable *COPY OF PRESCRIPTION DRUG MONITORING REPORT IN PATIENT TIESHA: Yes Instructions: Tendon Repair, Care After, Achilles Tendon Rupture Referrals: Linda Tee PA-C [Primary Care Provider] - Care Plan Goals: Patient will be sent home on a [place] also referred to walking orthopedic at [place] and will go ahead and give her Ultram 50 mg 1 tablet every 6 hours for pain she is to follow-up with her primary care.
== END 2018-01-03 21:10 | disposition home or self-care (01) ==
LOC: LL.ED 20:34
DX: S86.012A Strain of left Achilles tendon, initial encounter (principal); E78.00 Pure hypercholesterolemia, unspecified; I10 Essential (primary) hypertension; Z91.040 Latex allergy status; Z91.018 Allergy to other foods; E03.9 Hypothyroidism, unspecified; Z88.5 Allergy status to narcotic agent; W22.8XXA Striking against or struck by other objects, initial encounter
CPT/HCPCS: 99283